=== PATIENT | male | born 1955 | race Caucasian/White ===

== ENCOUNTER 2019-05-28 11:04 | Inpatient (IN) | payer OTHER ==
[~2019-05-28] VITALS: Ht 175.3 cm; Wt 68.7 kg
[2019-05-30 13:25] VITALS: BP 113/73
== END 2019-05-30 19:10 | disposition home or self-care (01) | DRG 193 ==
LOC: ED 11:20 → 3NW 14:30 → ED 14:30 → 3NW 15:51
PROVIDERS: ADMIT Internal Medicine; ATTEND Internal Medicine
DX: J18.9 Pneumonia, unspecified organism (principal); J96.01 Acute respiratory failure with hypoxia; J90 Pleural effusion, not elsewhere classified; F17.210 Nicotine dependence, cigarettes, uncomplicated; R91.8 Other nonspecific abnormal finding of lung field; D18.03 Hemangioma of intra-abdominal structures
CPT/HCPCS: 36415; 71046; 71260; 74177; 80048; 80053; 82040; 83605; 83735; 84100; 84145; 85025; 85610; 87040; 87205; 93005; 99285; G0378; J0456; J0696; Q9967; J7050

== ENCOUNTER 2019-06-06 09:18 | Day surgery (SDC) | payer OTHER ==
[~2019-06-06] VITALS: Ht 175.3 cm; Wt 69.0 kg
[~2019-06-06 09:18] MED LIST: ACET325T26 PO; AZIT500T5 PO; CEFD300C37 PO; DOXY100C15 PO; GUAI600T31 PO; OREGANO OIL; TEA TREE OIL
[2019-06-06 09:46] VITALS: BP 133/79
[2019-06-06] MEDS ORDERED: LACTATED RINGERS 1,000 ML IV SCH (09:54)
[2019-06-06] MEDS ORDERED: NONE PER PT (10:24)
[2019-06-06] MEDS ORDERED: MIDAZOLAM 1 MG/ML, 2ML ONE (10:54)
[2019-06-06] MEDS ORDERED: FENTANYL PF 250 MCG/5ML ONE (10:54)
[2019-06-06] MEDS ORDERED: DEXAMETHASONE 4 MG/ML, 1ML ONE (10:55)
[2019-06-06] MEDS ORDERED: PROPOFOL 10 MG/ML, 20ML ONE (10:58)
[2019-06-06] MEDS ORDERED: GLYCOPYRROLATE 0.2MG/1ML, 5ML ONE (11:04)
[2019-06-06] MEDS ORDERED: ROCURONIUM 10 MG/ML,10ML ONE (11:04)
[2019-06-06] MEDS ORDERED: ONDANSETRON 2MG/ML, 2ML ONE (11:04)
[2019-06-06] MEDS ORDERED: SUCCINYLCHOLINE 20 MG/ML, 10ML ONE (11:04)
[2019-06-06] MEDS ORDERED: NEOSTIGMINE 1 MG/ML, 10ML ONE (11:04)
[2019-07-09] MEDS ORDERED: ACET250T2 PO (07:53)
[2019-07-09] MEDS ORDERED: CARV6.2512 PO (07:53)
[2019-07-09] MEDS ORDERED: CALC1TAB68 PO (07:53)
[2019-07-09] MEDS ORDERED: OMEP-110 PO (07:53)
[2019-07-09] MEDS ORDERED: FURO40TA6 PO (07:53)
[2019-07-09] MEDS ORDERED: DOCU-131 PO (07:53)
[2019-07-09] MEDS ORDERED: POTA20TA6 PO (07:53)
[2019-07-09] MEDS ORDERED: LIDO700A20 TD (07:53)
[2019-07-09] MEDS ORDERED: Fentanyl Remove Patch XX (07:53)
[2019-07-09] MEDS ORDERED: SIME125T PO (07:53)
[2019-07-09] MEDS ORDERED: MELA3TAB56 PO (07:53)
== END 2019-06-06 14:00 | disposition home or self-care (01) ==
LOC: OUT 09:18
PROVIDERS: ATTEND Internal Medicine Critical Care Medicine
DX: C77.1 Secondary and unspecified malignant neoplasm of intrathoracic lymph nodes (principal); R60.0 Localized edema; E03.9 Hypothyroidism, unspecified; Z79.1 Long term (current) use of non-steroidal anti-inflammatories (NSAID); Z79.891 Long term (current) use of opiate analgesic; Z79.899 Other long term (current) drug therapy; Z82.0 Family history of epilepsy and other diseases of the nervous system
CPT/HCPCS: 31652; 88172; 88173; 88305; 93970; J0330; J1100; J2250; J2405; J2704; J2710; J3010; J7120; 31628